=== PATIENT | male | born 1985 | race Caucasian/White ===

== ENCOUNTER 2024-12-08 07:50 | Outpatient (CLI) | payer OTHER, SELFPAY ==
--- NOTE | 2024-12-08 08:15 | CRLHL7_ITS ---
For Patients: As a result of the Century Cures Act, medical imaging exams and procedure reports are released immediately into your electronic medical record. You may view this report before your referring provider. If you have questions, please contact your health care provider. Indication: Testicular pain. Technique: Ultrasound of the scrotum and contents. Sonographic mario-scale images were obtained with spectral and color Doppler waveform and spectral waveform analysis of the testicles. Comparison: None. Findings: Bother testicles are normal in size and echotexture. Right testis measures 4.5 x 2.6 x 3.2 cm. Left testis measures 4.5 x 2.4 x 3.2 cm. No suspicious calcifications. Arterial and venous color Doppler blood flow and spectral waveforms are present in both testicles. Area of palpable lump, correspond to the right epididymal tail without suspicious mass. Incidental note of small echogenic testicular appendix is identified measuring 4 x 2 x 2 millimeter. Epididymis: Unremarkable bilaterally. Normal blood flow. Other: No significant hydrocele. Scrotal wall is normal. Prominent pampiniform plexus veins measuring 3 millimeter on the right and 3.1 millimeter on the left, suggest varicocele. Left-sided veins appears more prominent with Valsalva. Impression: 1. No evidence of torsion or inflammation. 2. Palpable lump at the right scrotum, correspond to epididymal tail. No suspicious mass. 3. Suggestion of left greater than right borderline varicoceles. Dictated by Shira Lofton MD @ 12/08/2024 11:05:01 AM (Electronically Signed)
== END 2024-12-08 07:51 | disposition home or self-care (01) ==
LOC: US 07:52
PROVIDERS: Visit Provider Nurse Practitioner Family
DX: N50.89 Other specified disorders of the male genital organs (principal)
CPT/HCPCS: 76870; 93976